=== PATIENT | female | born 1955 | race Two or more races ===

== ENCOUNTER 2019-02-10 11:30 | Day surgery (SDC) | payer BC ==
[2019-02-10] MEDS ORDERED: PROPOFOL 60 ML (14:39)
== END 2019-02-10 16:29 | disposition home or self-care (01) ==
LOC: GIL 11:30
DX: K92.1 Melena (principal); K64.4 Residual hemorrhoidal skin tags; K64.8 Other hemorrhoids; K29.50 Unspecified chronic gastritis without bleeding; K21.0 Gastro-esophageal reflux disease with esophagitis; I10 Essential (primary) hypertension; E78.5 Hyperlipidemia, unspecified; E11.9 Type 2 diabetes mellitus without complications; E03.9 Hypothyroidism, unspecified; Z79.84 Long term (current) use of oral hypoglycemic drugs
CPT/HCPCS: 43239; 82962; 88305; 88312; 88313